=== PATIENT | male | born 1930 | race Caucasian/White ===

== ENCOUNTER → 2016-11-18 | Outpatient (CLI) | payer MEDICARE ==
--- NOTE | 2016-11-20 07:48 | OR ---
ADMIT: 11/18/2016 RM/LOC: [facility] MR#: [id number] [place], [place] [id number] LIZ HERNANDEZ [address] [place] [address] Operative/Delivery Room Report SEX: M AGE: 85 : 1930 SURGERY DATE: 11/18/2016 SURGEON: Wan Davidson MD PREOPERATIVE DIAGNOSIS: Left hip arthritis, trochanteric bursitis. POSTOPERATIVE DIAGNOSIS: Left hip arthritis, trochanteric bursitis. PROCEDURE: Left fluoroscopic guided intra-articular hip injection and trochanteric bursa injection. We injected 8 of lidocaine and 2 of Kenalog into the hip and 5 of lidocaine and 1 of Kenalog into the trochanteric bursa. He tolerated it very well. DESCRIPTION OF PROCEDURE: He was identified in the fluoroscopy suite. Written informed consent was obtained. We brought the x-ray in, located the needle intra-articularly and then injected 8 into there without complication and then identified the needle over the trochanteric bursa and injected 5 and 1 there. Tolerated this very well. No complications postoperatively. I will see him back in about six weeks to see if this helped his pain significantly. If it did not give significant relief, we will refer him to see somebody for his back for possible injections. If it did give him good relief, then we can repeat these injections every three months or so. Wan Davidson MD/ vdg JOB #: [id number] CC: Wan Davidson, Attending Physician Herminio Bruner, Family Physician
== END | disposition home or self-care (01) ==
LOC: RAD.S 08:59
PROC: 0S9B3ZZ Drainage of Left Hip Joint, Percutaneous Approach (ICD-10-PCS; principal; 2016-11-18)
DX: M71.552 Other bursitis, not elsewhere classified, left hip (principal); M16.12 Unilateral primary osteoarthritis, left hip; M25.552 Pain in left hip